=== PATIENT | male | born 1970 | race Caucasian/White ===

== ENCOUNTER → 2018-07-16 | Outpatient (CLI) | payer OTHER ==
[2018-07-16 16:09] LABS: ALBUMIN/GLOBULIN RATIO 1.3 (1.0-1.7); CREATININE 1.1 mg/dL (0.7-1.3); GFR 71.1; POTASSIUM 4.1 mmol/L (3.5-5.1); TOTAL BILIRUBIN 0.6 mg/dL (0.2-1.0); TOTAL PROTEIN 7.2 g/dL (6.4-8.2)
[2018-07-17 04:08] LABS: T3 TOTAL 100 ng/dL (71-180); THYROXINE 5.9 ug/dL (4.5-12.0)
[2018-07-17 07:12] LABS: ESTRADIOL LEVEL 39.1 pg/mL (7.6-42.6); PROGESTERONE <0.1 ng/mL (0.0-0.5); TESTOSTERONE TOTAL 263 ng/dL (264-916)
[2018-07-19 07:15] LABS: DHEA 280 ng/dL (31-701)
== END | disposition home or self-care (01) ==
LOC: LAB 14:57
PROVIDERS: ATTEND General Practice
DX: R79.89 Other specified abnormal findings of blood chemistry (principal); R63.5 Abnormal weight gain
CPT/HCPCS: 36415; 80053; 82670; 82679; 84144; 84403; 84436; 84443; 84480

== ENCOUNTER → 2018-09-19 | Outpatient (CLI) | payer OTHER ==
[2018-09-20 01:07] LABS: THYROXINE 6.3 ug/dL (4.5-12.0)
== END | disposition home or self-care (01) ==
LOC: LAB 13:31
PROVIDERS: ATTEND General Practice
DX: E03.8 Other specified hypothyroidism (principal)
CPT/HCPCS: 36415; 84436; 84443; 84480